=== PATIENT | female | born 1990 | race Caucasian/White ===

== ENCOUNTER 2019-01-08 21:27 | Emergency (ER) | payer OTHER ==
[2019-01-08] MEDS ORDERED: NS 1,000 ML IV ONE (21:43)
[2019-01-08 22:08] LABS: PLATELET COUNT 339 10^3/uL (150-400)
--- NOTE | 2019-01-08 22:29 | EDPHY ---
H & P Stated Complaint: syncopal episode at gym. Chest discomfort, SOLANO, nausea Source: Patient Exam Limitations: No limitations - Personal History Current Tetanus/Diphtheria Vaccine: Yes Current Tetanus Diphtheria and Acellular Pertussis (TDAP): Yes - Medical/Surgical History Hx Asthma: No Hx Chronic Respiratory Disease: No Hx Diabetes: No Hx Cardiac Disease: No Hx Renal Disease: No Hx Cirrhosis: No Hx Alcoholism: No Hx HIV/AIDS: No Hx Splenectomy or Spleen Trauma: No Other PMH: "possible arrythmia" - Social History Smoking Status: Never smoked Time Seen by Provider: 01/08/19 22:24 HPI/ROS: HPI: This is a 28-year-old female who presents with Chief Complaint: syncopal episode at gym. Chest discomfort, SOLANO, nausea Location: Body Quality: Loss of consciousness Duration: 1 hr prior to arrival Signs and Symptoms: no shortness of breath at rest, no shortness of breath on exertion, no cough, no chest pain, no palpitations, no lower extremity edema, no wheezing, no orthopnea, no paroxysmal nocturnal dyspnea, no fever, no injury/ trauma, no hemoptysis, no carpal pedal spasms, no seizure activity Timing: Acute, resolving Severity: Moderate Context: Patient presents accompanied by her with complaints of "passing out while performing squats" at the gym prior to arrival. Patient reports that she was weightlifting at a weight that is lower than usual for her and afterwards started to feel "lightheaded", denies the room spinning, and placed her right hand on her to brace herself. The noted that she went "pasty white and her eyes were staring ahead and her jaw was locked." Patient then was disoriented when "she came around" and did not remember if she was at the gym. In fact, she asked her are we at the gym?" Patient denies any tongue biting, urinary incontinence, compulsions, fever, shortness of breath, chest pain. Reports in high school she had a similar episode while crossing the street. In college she had a similar episode while running on the treadmill and went to the emergency room and per the patient "the workup was negative." She went to see a marketing content coordinator and had a negative exercise stress test. Patient reports that she is probably drank 54 oz of fluid today and has 8 several times. Modifying Factors: None Comment: ROS: A comprehensive 10 system review of systems is otherwise negative aside from elements mentioned in the history of present illness. MEDICAL/SURGICAL/SOCIAL HISTORY: Medical history: Generally healthy. Does not take any regular medications. Surgical history: Denies Social history: . Denies alcohol, tobacco, drug use. Employed. CONSTITUTIONAL: Physically fit, adult white female, at bedside, awake and alert, no obvious distress HEENT: Atraumatic and normocephalic, PERRL, EOMI. Nares patent; no rhinorrhea; no nasal mucosal edema. Tympanic membranes clear. Oropharynx clear, no exudate and moist pink mucosa. Airway patent. No lymphadenopathy. No meningismus. Carotid bruits. Cardiovascular: Normal S1/S2, regular rate, regular rhythm, without murmur rub or gallop. PULMONARY/CHEST: Symmetrical and nontender. Clear to auscultation bilaterally. Good air movement. No accessory muscle usage. ABDOMEN: Soft, nondistended, nontender, no rebound, no guarding, no peritoneal signs, no masses or organomegaly. No CVAT. EXTREMITIES: 2/2 pulses, strength 5/5, no deformities, no clubbing, no cyanosis or edema. NEUROLOGICAL: no focal neuro deficits. GCS 15. No nystagmus with [place]-Hallpike maneuver. Cranial nerves 2 through 12 grossly intact. SKIN: Warm and dry, no erythema. no rash. Good capillary refill. (Rose Calabrese) Constitutional: Initial Vital Signs Temperature (C) 36.5 C 01/08/19 21:30 Heart Rate 54 L 01/08/19 21:30 Respiratory Rate 20 01/08/19 21:30 Blood Pressure 146/99 H 01/08/19 21:30 O2 Sat (%) 98 01/08/19 21:30 O2 Delivery Mode Room Air Allergies/Adverse Reactions: No Known Allergies Allergy (Unverified 01/08/19 21:34) Home Medications: Medication Instructions Recorded Doxycycline Monohydrate 01/08/19 Spironolactone 01/08/19 Medical Decision Making ED Course/Re-evaluation: Vital signs reviewed and stable upon arrival. No systemic signs. Placed on shelter monitor. EKG my read shows normal sinus rhythm with a rate of 57 beats per minute, no acute ischemic changes. IV access, laboratory studies ordered Orthostatics negative 2230: Notified by tech that troponin 0.00 2233: Laboratory studies reviewed. No signs of leukocytosis/anemia/platelet dysfunction/SANDIP/elevated LFTs/electrolyte imbalance//VTE/ACS. 2300: Recommended patient be admitted for further evaluation by Cardiology and Neurology and she adamantly politely decline. Significant other at bedside does not want to admit patient either. She prefers to follow up outpatient. She understands that she needs to follow up with both Cardiology and Neurology. Exercise restrictions placed. This patient was seen under the supervision of my secondary supervising physician. I evaluated and cared for this patient independently. (Rose Calabrese) Differential Diagnosis: Syncope including but not limited to vasovagal syncope, arrhythmia, dehydration , and blood loss. (Rose Calabrese) Other Provider: The patient was evaluated and managed by the Physician Phlebotomy Program Coordinator. My co- signature indicates that I have reviewed this chart and I agree with the findings and plan of care as documented. I am the secondary supervising physician. (Yanelis Albert) - Data Points Laboratory Results: Laboratory Results 01/08/19 21:56 01/08/19 21:56 01/08/19 01/08/19 01/08/19 22:30 22:27 21:56 WBC RBC Hgb Hct MCV MCH MCHC RDW Plt Count MPV Neut % (Auto) Lymph % (Auto) [place] % (Auto) Eos % (Auto) Baso % (Auto) Nucleat RBC Rel Count Absolute Neuts (auto) Absolute Lymphs (auto) Absolute Monos (auto) Absolute Eos (auto) Absolute Basos (auto) Absolute Nucleated RBC Immature Gran % Immature Gran # D-Dimer Sodium Potassium Chloride Carbon Dioxide Anion Gap BUN Creatinine Estimated GFR Glucose Calcium Magnesium POC Troponin I 0.00 ng/mL ng/mL 0.00 ng/mL ng/mL (0.00-0.08) (0.00-0.08) Beta HCG, Qual NEGATIVE 01/08/19 01/08/19 01/08/19 21:56 21:56 21:56 WBC 8.67 10^3/uL 10^3/uL (3.80-9.50) RBC 4.29 10^6/uL 10^6/uL (4.18-5.33) Hgb 12.1 g/dL L g/dL (12.6-16.3) Hct 38.2 % % (38.0-47.0) MCV 89.0 fL fL (81.5-99.8) MCH 28.2 pg pg (27.9-34.1) MCHC 31.7 g/dL L g/dL (32.4-36.7) RDW 13.7 % % (11.5-15.2) Plt Count 339 10^3/uL 10^3/uL (150-400) MPV 9.5 fL fL (8.7-11.7) Neut % (Auto) 64.7 % % (39.3-74.2) Lymph % (Auto) 26.1 % % (15.0-45.0) [place] % (Auto) 7.3 % % (4.5-13.0) Eos % (Auto) 1.4 % % (0.6-7.6) Baso % (Auto) 0.3 % % (0.3-1.7) Nucleat RBC Rel Count 0.0 % % (0.0-0.2) Absolute Neuts (auto) 5.61 10^3/uL 10^3/uL (1.70-6.50) Absolute Lymphs (auto) 2.26 10^3/uL 10^3/uL (1.00-3.00) Absolute Monos (auto) 0.63 10^3/uL 10^3/uL (0.30-0.80) Absolute Eos (auto) 0.12 10^3/uL 10^3/uL (0.03-0.40) Absolute Basos (auto) 0.03 10^3/uL 10^3/uL (0.02-0.10) Absolute Nucleated RBC 0.00 10^3/uL 10^3/uL (0-0.01) Immature Gran % 0.2 % % (0.0-1.1) Immature Gran # 0.02 10^3/uL 10^3/uL (0.00-0.10) D-Dimer < 0.27 ug/mLFEU ug/mLFEU (0.00-0.50) Sodium 135 mEq/L mEq/L (135-145) Potassium 3.8 mEq/L mEq/L (3.5-5.2) Chloride 100 mEq/L mEq/L (97-110) Carbon Dioxide 27 mEq/l mEq/l (22-31) Anion Gap 8 mEq/L mEq/L (6-14) BUN 14 mg/dL mg/dL (7-23) Creatinine 0.9 mg/dL mg/dL (0.6-1.0) Estimated GFR > 60 Glucose 107 mg/dL H mg/dL (70-100) Calcium 10.0 mg/dL mg/dL (8.5-10.4) Magnesium 1.8 mg/dL mg/dL (1.6-2.3) POC Troponin I Beta HCG, Qual Medications Given: Discontinued Medications Sodium Chloride (Ns) 1,000 mls @ 0 mls/hr IV EDNOW ONE; Wide Open PRN Reason: Protocol Stop: 01/08/19 21:44 Last Admin: 01/08/19 21:45 Dose: 1,000 mls Point of Care Test Results: Chemistry 01/08/19 01/08/19 22:30 22:27 POC Troponin I 0.00 ng/mL ng/mL 0.00 ng/mL ng/mL (0.00-0.08) (0.00-0.08) Departure - Departure Disposition: Home, Routine, Self-Care Clinical Impression: Fainting episodes Qualifiers: Syncope type: unspecified Qualified Code(s): R55 - Syncope and collapse Condition: Good Instructions: Syncope (ED) Additional Instructions: Please follow-up with Cardiology to determine if you are a candidate to have an echocardiogram, Holter monitor and/or tilt-table test performed. Follow-up with Neurology to determine if you are a candidate to have an EEG performed. You are not to participate in any moderate/strenuous exercise activity until seen by Cardiology and Neurology. Consume a minimum of 8-10 glasses of water or electrolyte fluid replacement drinks that include Gatorade, Powerade, Pedialyte. Referrals: Chaz Lvoell MD [Primary Care Provider] - As per Instructions Garrick Holguin MD [Medical Doctor] - As per Instructions [facility] [Outside] - As per Instructions
[2019-01-08 22:49] VITALS: BP 121/68
== END 2019-01-08 23:11 | disposition home or self-care (01) ==
DX: R55 Syncope and collapse (principal); E86.9 Volume depletion, unspecified
CPT/HCPCS: 84484-ER